=== PATIENT | male | born 1975 | race Two or more races ===

== ENCOUNTER 2024-08-24 10:14 | Inpatient (IN) | payer MEDICAID, OTHER ==
[~2024-08-24] VITALS: Ht 175.3 cm; Wt 103.0 kg
--- NOTE | 2024-08-24 10:46 | ED.PDOC ---
HPI Comments 49 y.o male presents to the ED for a chief complaint of left sided chest pain that started 2 weeks ago s/p hospital discharge. Patient describes pain as a sharp and pressure sensation, is non radiating, intermittent, presents at rest and alleviates when taking a walk. Additonally, patient has had elevated blood pressure readings. Patient originally was at his PCP office today to follow up s/p hospital discharge from [place] 2 weeks ago for a right sided leg cellulitis with debridement procedure. Patient told PCP about his chest pain and was sent into the ED for high level of care. Patient at this time has no complaints regarding his wound, states he has a wound care nurse who comes to his house a couple times a week, with last visit being 3 days ago. Patient denies any fever, chills, nausea, vomiting, abdominal pain, Patient was placed on Augmentin and has already finished the course. Patient also was prescribed HTN medication during his hospital admission but states he has not yet picked up the medication from the pharmacy. Patient gets wound care twice a week. Patient has not picked up his blood pressure medications yet. Vitals: BP: 168/106 HR: 88 Temp: 97.8 F SPO2: 95% RA RR: 18 Past medical history: HTN, right leg cellulitis, Marijuana and tobacco use. Past surgical history: Right leg incision and debridement Allergies: None HPI: Poor Historian. REVIEW OF SYSTEMS: CONSTITUTIONAL: Denies acute: fever, diaphoresis, chills, generalized weakness. HEAD: Denies acute: headache, photophobia Eyes: Denies acute: Double vision, vision loss, eye pain, eye discharge. EARS: Denies acute: tinnitus, hearing loss, ear discharge, ear pain, THROAT: Denies acute: sore throat, swelling, difficulty swallowing , pain with swallowing, change in voice. NECK: Denies acute: neck pain, neck swelling, stiff neck. HEART: Denies acute : palpitations, LUNGS: Denies acute: SOB, wheezing, cough, hemoptysis ABDOMEN: Denies acute: abdominal pain, Nausea, Vomiting, diarrhea, melena , hematemesis, hematochezia SKIN: Denies acute: rash, redness, lesions, itchiness. EXTREMITIES: Denies acute: calf pain, numbness, tingling, weakness, denies pain in extremity. Denies acute: Low back pain. Neuro: Denies acute: focal neurological deficit, motor or sensory focal neurological deficit, tremors, seizure like activity, confusion, dizziness, change in mental status, loss of bowel or bladder function, cauda equina like symptoms. : Denies acute: dysuria, hematuria, flank pain, increase in urinary frequency. PSYCH: Denies acute: hallucination, suicidal ideation, homicidal ideation. PHYSICAL EXAM: General: ---mild-----acute distress, awake and alert. Head: normocephalic, atraumatic. Neck: supple, trachea is midline, no swelling. Throat: Normal phonation. Eyes:, no erythema, no purulent discharge, no proptosis, no icterus. Heart: regular rate, regular rhythm, no significant murmur appreciated. Lungs: no apparent respiratory distress, Able to speak in full sentences. No wheezing, no rhonchi, no crackles. No stridors Clear to auscultation bilaterally. Abdomen: non tender to palpation, non distended, soft, no guarding, no rebound, + bowel sounds. Neuro: Awake, Alert, oriented to name, self, situation, follows commands GCS=15. Speech is normal. Skin: no petechia, no purpura, no cyanosis, non-pale, not jaundice. Lower extremities: --trace bilateral - Pitting edema no deformity, no focal swelling, no calf TTP. Well healing wound in the right anterior meyer. Makes eye contact. moves all four extremities. Face: no apparent facial droop. ED COURSE: Chief Complaint: Chest Pain Time Seen by MD: 10:25 Reviewed Notes: Nurses Notes, Allergies Allergies: Coded Allergies: NO KNOWN ALLERGIES (Unverified , 08/24/24) Information Source: Patient Mode of Arrival: Wheelchair Past Medical History PAST MEDICAL HISTORY: HTN Past Medical History (Other): cellulitis to the right lower leg Surgical History (Other): debriement Family History Family History: Reviewed,noncontributory to illness Social History Smoker: Cigarettes Alcohol: Denies ETOH Use Drugs: Marijuana Lives In: Home Was a procedure done? Was a procedure done?: No CP Differential Dx Differential Diagnosis: N/A Differential Diagnosis: Angina, Chest Wall Pain, Costochondritis, Esophageal reflux/spasm, Gastritis, Pericarditis, Other (Ddx include but not limitied to gastritis, musculoskeletal pain, radiculopathy, atypical chest pain, dissection, aneurysm, ACS, unstable angina, hiatal hernia, GERD, anxiety, costochondritis, PE, pneumothroax, neoplasm, cardiac ischemia, drug abuse, anemia.) X-Ray, Labs, Meds, VS Vital Signs Date Time Temp Pulse Resp B/P (MAP) Pulse Ox O2 Delivery O2 Flow Rate FiO2 08/24/24 13:40 85 08/24/24 13:37 78 10 141/92 (108) 97 08/24/24 13:37 74 10 97 Room Air* 0 21 08/24/24 13:00 87 12 154/101 (118) 99 08/24/24 11:59 154/101 08/24/24 10:59 154/100 08/24/24 10:59 97.5 89 18 151/100 (117) 95 97.5 08/24/24 10:59 89 18 95 Room Air 08/24/24 10:21 97.8 88 18 168/106 (126) 95 97.8 08/24/24 10:21 89 Lab Test 08/24/24 13:25 08/24/24 11:04 08/24/24 10:18 Range/Units Troponin I High Sensitivity Pending 8 8 </=54 ng/L White Blood Count 11.3 H 4.4-10.8 10^3/uL Red Blood Count 4.71 4.5-5.90 10^6/uL Hemoglobin 14.4 13.5-17.5 g/dL Hematocrit 43.1 41.0-53.0 % Mean Corpuscular Volume 91.5 80.0-100.0 fL Mean Corpuscular Hemoglobin 30.5 28.0-32.0 pg Mean Corpuscular Hemoglobin Concent 33.3 32.0-36.0 g/dL Red Cell Distribution Width 14.7 H 11.8-14.3 % Platelet Count 221 140-450 10^3/uL Mean Platelet Volume 8.3 6.9-10.8 fL Neutrophils (%) (Auto) 68.7 37.0-80.0 % Lymphocytes (%) (Auto) 18.5 10.0-50.0 % Monocytes (%) (Auto) 6.6 0.0-12.0 % Eosinophils (%) (Auto) 5.8 0.0-7.0 % Basophils (%) (Auto) 0.4 0.0-2.0 % Neutrophils # (Auto) 7.7 1.6-8.6 10 ^3/uL Lymphocytes # (Auto) 2.1 0.4-5.4 10 ^3/uL Monocytes # (Auto) 0.7 0-1.3 10 ^3/uL Eosinophils # (Auto) 0.7 0-0.8 10 ^3/uL Basophils # (Auto) 0 0-0.2 10 ^3/uL Nucleated Red Blood Cells 0.0 % D-Dimer, Quantitative 0.36 0.0-0.49 mg/L FEU Sodium Level 137 136-145 mmol/L Potassium Level 3.7 3.5-5.1 mmol/L Chloride Level 107 98-107 mmol/L Carbon Dioxide Level 25 20-31 mmol/L Anion Gap 5 5-15 Blood Urea Nitrogen 13 9-23 mg/dL Creatinine 1.02 0.700-1.30 mg/dL Glomerular Filtration Rate Calc 89 >90 mL/min BUN/Creatinine Ratio 12.7 10.0-20.0 Serum Glucose 109 H 74-106 mg/dL Calcium Level 9.5 8.7-10.4 mg/dL Total Bilirubin 0.4 0.2-1.0 mg/dL Aspartate Amino Transferase (AST) 14 13-40 U/L Alanine Aminotransferase (ALT) 17 7-40 U/L Alkaline Phosphatase 77 46-116 U/L Total Protein 7.5 5.7-8.2 g/dL Albumin 4.4 3.2-4.8 g/dL Current Medications Medications (Trade) Dose Ordered Sig/Vasu Route Start Time Stop Time Status Last Admin Aspirin (Ecotrin Enteric Coated Tablet) 325 mg ONCE ONCE PO 08/24/24 10:45 08/24/24 10:46 DC 08/24/24 10:58 Nitroglycerin (Ntrostat Sublingual) 0.4 mg ONCE ONCE SL 08/24/24 10:45 08/24/24 10:46 DC 08/24/24 10:[address] [address] Ph: [phone] DIAGNOSTIC IMAGING Diagnostic Imaging Report : [id number] Signed PATIENT: PETERSON MOON MACCT: [id number] UNIT: [id number] : 1975 LOC: ER ROOM / BED: / AGE / SEX: 49 / M ADM STATUS: REG ER SERVICE 1242 ORDERING PHYSICIAN: WADE HENSLEY DO PROCEDURE(s): CXRP - CHEST PORTABLE REASON: cp ORDER NUMBER(s): [id number], ACCESSION NUMBER(s): [id number] EXAM: XY CHEST PORTABLE HISTORY: cp COMPARISON: None TECHNIQUE: Portable upright AP view of the chest was performed. FINDINGS: No pneumothorax, consolidative infiltrates, or pulmonary edema. The heart is not enlarged. IMPRESSION: No acute intrathoracic process. ATED BY: DANIEL SINGH MD DICTATED DATE/TIME: 08/24/241326 SIGNED BY: DANIEL SINGH MD SIGNED DATE/TIME: 08/24/241326 CC: Time of 1ST Reevaluation: 10:56 Reevaluation 1ST: Unchanged Patient Education/Counseling: Diagnosis, Treatment Family Education/Counseling: No Family Present Comments Patient presented with the above HPI.---cardiac--workup was initiated. patient was found with the above mentioned diagnosis. the following medications were ordered: please refer to order lists of meds and tests obtained by myself Dr. Hensley. Patient ED course and VS have been stabilized. Patient has been reassessed in the ED and remained in a stable condition. Pertinent incidental findings were discussed with the patient and/or family. Patient/family voices understanding and is agreeable with plan. Patient has been observed in the ED adequate length of time to insure improvement/stability. Escalation of care considered: Consideration of escalation to observation or admission Patient was ADMITTED to the medicine team for further evaluation and treatment of their presentation. All the reports of any imaging studies that were ordered by myself were reviewed by myself. Departure 1 Departure Time of Disposition: 12:44 Impression: Primary Impression: Chest pain Disposition: ADMITTED INPATIENT Admit to: Tele Condition: Guarded Discharged With: Self Critical Care Note Critical Care Time?: No Heart Score Heart Score: Heart Score Response (Comments) Value History Slightly Suspicious 0 EKG Normal 0 Age 45-64 1 Risk Factors >3 or Hx ASHD 2 Troponin Normal limit 0 Total 3 I personally scribed for WADE HENSLEY DO ([email or web address]) on 08/24/24 at 10:46. Electronically submitted by Anabel Arenas ([facility]). I personally scribed for WADE HENSLEY DO ([email or web address]) on 08/24/24 at 11:02. Electronically submitted by Anabel Arenas ([facility]). I personally scribed for WADE HENSLEY DO ([email or web address]) on 08/24/24 at 12:28. Electronically submitted by Anabel Arenas ([facility]). WADE HENSLEY DO Aug 24, 2024 10:46
--- NOTE | 2024-08-24 10:53 | ECG ---
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
[2024-08-24] MEDS: ASPirin-EC 325mg tab PO ONE (10:58)
[2024-08-24] MEDS: NITROGLYCERIN 0.4 MG SL TAB SL ONE (10:59)
[2024-08-24 11:32] LABS: Basophils # (auto) 0 10 ^3/uL (0-0.2); Basophils % (auto) 0.4 % (0.0-2.0); Eosinophils # (auto) 0.7 10 ^3/uL (0-0.8); Eosinophils % (auto) 5.8 % (0.0-7.0); Hematocrit 43.1 % (41.0-53.0); Hemoglobin 14.4 g/dL (13.5-17.5); Lymphocytes # (auto) 2.1 10 ^3/uL (0.4-5.4); Lymphocytes % (auto) 18.5 % (10.0-50.0); Mean Corpuscular Hemoglobin 30.5 pg (28.0-32.0); Mean Corpuscular Hgb Conc. 33.3 g/dL (32.0-36.0); Mean Corpuscular Volume 91.5 fL (80.0-100.0); Monocytes # (auto) 0.7 10 ^3/uL (0-1.3); Monocytes % (auto) 6.6 % (0.0-12.0); Neutrophils # (auto) 7.7 10 ^3/uL (1.6-8.6); Neutrophils % (auto) 68.7 % (37.0-80.0); Platelet Count (auto) 221 10^3/uL (140-450); Red Blood Cells 4.71 10^6/uL (4.5-5.90); Red Cell Distribution Width 14.7 % (11.8-14.3); White Blood Cell 11.3 10^3/uL (4.4-10.8)
[2024-08-24 11:50] LABS: Alanine Aminotransferase 17 U/L (7-40); Albumin 4.4 g/dL (3.2-4.8); Alkaline Phosphatase 77 U/L (46-116); Anion Gap 5 (5-15); Aspartate Aminotransferase 14 U/L (13-40); BUN/Creatinine Ratio 12.7 (10.0-20.0); Bilirubin, Total 0.4 mg/dL (0.2-1.0); Blood Urea Nitrogen 13 mg/dL (9-23); Calcium 9.5 mg/dL (8.7-10.4); Carbon Dioxide 25 mmol/L (20-31); Chloride 107 mmol/L (98-107); Potassium 3.7 mmol/L (3.5-5.1); Sodium 137 mmol/L (136-145); Total Protein 7.5 g/dL (5.7-8.2)
[2024-08-24 11:55] LABS: Glucose 109 mg/dL (74-106)
--- NOTE | 2024-08-24 13:30 | DVH ---
EXAM: XY CHEST PORTABLE HISTORY: cp COMPARISON: None TECHNIQUE: Portable upright AP view of the chest was performed. FINDINGS: No pneumothorax, consolidative infiltrates, or pulmonary edema. The heart is not enlarged. IMPRESSION: No acute intrathoracic process.
[2024-08-24 13:37] VITALS: PULSE 74; RESP 10; O2SAT 97
[2024-08-24] MEDS ORDERED: MORPHINE SULFATE INJ 2 MG/ml SYRG IV PRN (19:00)
[2024-08-24] MEDS ORDERED: ONDANSETRON HCL 4 MG/2 ML VIAL IV PRN (19:00)
[2024-08-24] MEDS ORDERED: NITROGLYCERIN 0.4 MG SL TAB SL PRN (19:00)
[2024-08-24] MEDS ORDERED: TEMAZEPAM 15 MG CAP PO PRN (19:00)
[2024-08-24 19:30] VITALS: PULSE 76; RESP 16; O2SAT 97
[2024-08-24 20:53] VITALS: BP 158/105; PULSE 100; RESP 18; RESP 20; TEMP 98.2; O2SAT 97
[2024-08-24 21:04] LABS: Urine Bacteria FEW /hpf (None Seen); Urine Blood TRACE /uL (Negative); Urine Clarity Turbid (Clear); Urine Color Yellow (Yellow); Urine Mucus FEW (None Seen); Urine Protein, UAD TRACE (Negative); Urine Specific Gravity 1.022 (1.001-1.035); Urine Squamous Epithelial Cell FEW /hpf (<5); Urine Urobilinogen Normal (Negative); Urine WBC 112 /HPF (0-3)
--- NOTE | 2024-08-24 21:39 | DVHHP2 ---
History of Present Illness Reason for Visit: Chest pain History of Present Illness 49-year-old male presents for evaluation of chest pain. Patient reports intermittent episodes of substernal pressure-like chest pain. She states today the symptoms became worse. He states having substernal chest pressure worsening when laying down. He states the symptoms alleviate somewhat when he ambulates. Reports mild shortness for breath. No nausea or vomiting. He also reports having foul-smelling urine for the past one-week. Past Medical History Hypertension, leg cellulitis Past Surgical History Debridement of right lower extremity Family History Noncontributory Smoke: No ALCOHOL: none Lives: with Family Review of Systems Review of Systems Review of systems are currently negative otherwise addressed in HPI . Allergies: Coded Allergies: NO KNOWN ALLERGIES (Unverified , 08/24/24) Medications Current Medications Medications Dose Ordered Sig/Vasu Route Start Time Stop Time Status Last Admin Dose Admin Aspirin 81 mg DAILY PO 08/25/24 10:00 Temazepam 15 mg QHSP PRN PO 08/24/24 19:00 Ondansetron HCl 4 mg Q4HP PRN IV 08/24/24 19:00 Acetaminophen 650 mg Q6HP PRN PO 08/24/24 19:00 Nitroglycerin 0.4 mg Q5MINP PRN SL 08/24/24 19:00 Morphine Sulfate 2 mg Q30M PRN IV 08/24/24 19:00 Lisinopril 10 mg DAILY PO 08/25/24 10:00 UNV Exam Vital Signs Vital Signs Date Time Temp Pulse Resp B/P (MAP) Pulse Ox O2 Delivery O2 Flow Rate FiO2 08/24/24 20:53 98.2 100 18 158/105 (122) 97 98.2 08/24/24 19:30 Room Air* 0 21 Exam Gen: 49-year-old male in mild distress Skin: Warm, dry, normal color and texture, no rash. HEENT: Normocephalic atraumatic, mucous membranes moist and pink. Neck: Cervical and supraclavicular nodes normal without enlargement, trachea is midline, thyroid gland is normal without masses. Pulmonary: Clear to auscultation and percussion bilaterally. Cardiac: Regular rate and rhythm. No murmur Abdomen: Soft, nontender, nondistended, bowel sounds present all 4 quadrants, no guarding, no rigidity, no organomegaly. Extremities: No cyanosis, clubbing, no edema Neuro: Cranial nerves II through XII grossly intact, normal affect and speech, no focal motor deficits. Labs/Xrays ORDERING PHYSICIAN: WADE HENSLEY DO PROCEDURE(s): CXRP - CHEST PORTABLE REASON: cp ORDER NUMBER(s): [id number], ACCESSION NUMBER(s): [id number] EXAM: XY CHEST PORTABLE HISTORY: cp COMPARISON: None TECHNIQUE: Portable upright AP view of the chest was performed. FINDINGS: No pneumothorax, consolidative infiltrates, or pulmonary edema. The heart is not enlarged. IMPRESSION: No acute intrathoracic process. Labs Test 08/24/24 20:46 08/24/24 13:25 08/24/24 10:18 Range/Units Urine Color Yellow Yellow Urine Clarity Turbid H Clear Urine pH 6.0 5.0-9.0 Urine Specific [place] 1.022 1.001-1.035 Urine Protein Trace H Negative Urine Ketones Negative Negative Urine Blood Trace H Negative /uL Urine Nitrite 1+ H Negative Urine Bilirubin Negative Negative Urine Urobilinogen Normal Negative mg/dL Urine Leukocyte Esterase 3+ Negative /uL Urine RBC 4 0 - 3 /hpf Urine Microscopic WBC 112 H 0-3 /HPF Urine Squamous Epithelial Cells Few <5 /hpf Urine Bacteria Few H None Seen /hpf Urine Mucus Few None Seen Urine Glucose Normal Normal mg/dL Troponin I High Sensitivity 7 </=54 ng/L White Blood Count 11.3 H 4.4-10.8 10^3/uL Red Blood Count 4.71 4.5-5.90 10^6/uL Hemoglobin 14.4 13.5-17.5 g/dL Hematocrit 43.1 41.0-53.0 % Mean Corpuscular Volume 91.5 80.0-100.0 fL Mean Corpuscular Hemoglobin 30.5 28.0-32.0 pg Mean Corpuscular Hemoglobin Concent 33.3 32.0-36.0 g/dL Red Cell Distribution Width 14.7 H 11.8-14.3 % Platelet Count 221 140-450 10^3/uL Mean Platelet Volume 8.3 6.9-10.8 fL Neutrophils (%) (Auto) 68.7 37.0-80.0 % Lymphocytes (%) (Auto) 18.5 10.0-50.0 % Monocytes (%) (Auto) 6.6 0.0-12.0 % Eosinophils (%) (Auto) 5.8 0.0-7.0 % Basophils (%) (Auto) 0.4 0.0-2.0 % Neutrophils # (Auto) 7.7 1.6-8.6 10 ^3/uL Lymphocytes # (Auto) 2.1 0.4-5.4 10 ^3/uL Monocytes # (Auto) 0.7 0-1.3 10 ^3/uL Eosinophils # (Auto) 0.7 0-0.8 10 ^3/uL Basophils # (Auto) 0 0-0.2 10 ^3/uL Nucleated Red Blood Cells 0.0 % D-Dimer, Quantitative 0.36 0.0-0.49 mg/L FEU Sodium Level 137 136-145 mmol/L Potassium Level 3.7 3.5-5.1 mmol/L Chloride Level 107 98-107 mmol/L Carbon Dioxide Level 25 20-31 mmol/L Anion Gap 5 5-15 Blood Urea Nitrogen 13 9-23 mg/dL Creatinine 1.02 0.700-1.30 mg/dL Glomerular Filtration Rate Calc 89 >90 mL/min BUN/Creatinine Ratio 12.7 10.0-20.0 Serum Glucose 109 H 74-106 mg/dL Calcium Level 9.5 8.7-10.4 mg/dL Total Bilirubin 0.4 0.2-1.0 mg/dL Aspartate Amino Transferase (AST) 14 13-40 U/L Alanine Aminotransferase (ALT) 17 7-40 U/L Alkaline Phosphatase 77 46-116 U/L Total Protein 7.5 5.7-8.2 g/dL Albumin 4.4 3.2-4.8 g/dL Assessment/Plan Assessment/Plan Assessment Chest pain rule out ACS Hypertension UTI Plan Admit the patient to telemetry to the hospitalist Cardiology consultation Resume home medications Rocephin Urine bacterial culture pending Continue treatment per orders. Plan discussed with: Patient My Orders Orders - GWEN CORREA AGACNP Procedure Category Date Status Time Aspirin Tablet PHA 08/25/24 In Process 10:00 * Cardiology Consult CONS 08/24/24 Transmitted 18:46 Basic Metabolic Panel LAB 08/25/24 Verified 04:00 Admit ADMIT 08/24/24 Transmitted 18:46 Temazepam (Restoril) PHA 08/24/24 In Process 19:00 Ondansetron Hcl PHA 08/24/24 In Process (Zofran) 19:00 Echo 2d Mode Cardiac US 08/24/24 Logged DOP 18:46 Condition: Fair [place] 08/24/24 In Process 18:46 Acetaminophen Tablet PHA 08/24/24 In Process (Tylenol Tablet) 19:00 Bedrest With Bathroom [place] 08/24/24 In Process Privileg 18:46 Nitroglycerin PHA 08/24/24 In Process Sublingual (Ntrostat 19:00 Morphine Sulfate PHA 08/24/24 In Process Injection 19:00 Stat Ekg For Chest [facility] 08/24/24 In Process Pain 18:46 Notify Of Changes [facility] 08/24/24 In Process From Base 18:46 Cardiology Specialist For [facility] 08/24/24 In Process 24 Hours 18:46 Emergency Dysrhythmia [facility] 08/24/24 In Process Protocol 18:46 Rhythm Strips Once [facility] 08/24/24 In Process Every Shift 18:46 Oxygen By Nasal RT 08/24/24 Transmitted Cannula 18:46 Lisinopril Tablet PHA 08/25/24 Logged (Zestril Tablet) 10:00 Lisinopril Tablet PHA 08/24/24 Transmitted (Zestril Tablet) 21:30 Date of Service: Aug 24, 2024 Billing Provider: GWEN CORREA Common Visit Codes: [id number] INP/OBS CARE (HIGH) GWEN CORREA Aug 24, 2024 21:39
[2024-08-24] MEDS ORDERED: ACET1CAP14 PO (22:09)
[2024-08-24] MEDS ORDERED: IBUP200C3 PO (22:09)
[2024-08-24] MEDS: LISINOPRIL 5 MG TAB PO ONE (22:12)
[2024-08-24] MEDS: cefTRIAXone 1GM/50ML D5W 50 ML IV ONE (22:14)
[2024-08-24 23:13] VITALS: BP 145/93; PULSE 82; TEMP 98.8; O2SAT 98
[2024-08-25] VITALS (9 sets, daily range): BP systolic 133–154; BP diastolic 85–99; PULSE 67–90; RESP 16–20; TEMP 97.8–98.1; O2SAT 96–98
[2024-08-25 06:20] LABS: Chloride 104 mmol/L (98-107); Potassium 3.7 mmol/L (3.5-5.1); Sodium 137 mmol/L (136-145)
[2024-08-25 06:21] LABS: Anion Gap 7 (5-15); Calcium 9.4 mg/dL (8.7-10.4); Carbon Dioxide 26 mmol/L (20-31)
[2024-08-25 06:26] LABS: BUN/Creatinine Ratio 14.2 (10.0-20.0); Blood Urea Nitrogen 15 mg/dL (9-23); Glucose 98 mg/dL (74-106)
[2024-08-25] MEDS: cefTRIAXone 1GM/50ML D5W 50 ML IV SCH (08:33)
[2024-08-25] MEDS: ASPirin 81 mg TAB PO SCH (10:00)
[2024-08-25] MEDS: LISINOPRIL 5 MG TAB PO SCH (10:06)
--- NOTE | 2024-08-25 11:08 | DVHINCON2 ---
Date Seen: Aug 25, 2024 Referring Physician PAIGE Jonas Reason for Consultation Chest pain History of Present Illness This is a 49-year-old man who presented to the emergency room with a chief complaint of chest pain for two weeks. Describes his chest pain as left-sided, sharp/pressure-like, radiating to his left upper extremity, intermittent, non provoked, associated with a headache, and alleviated with ambulation. At time of assessment, the patient denied any further chest pain. Presented with systolic blood pressure in the 160s mmHg. He underwent a 12 lead electrocardiogram revealing a normal sinus rhythm. Serial troponin levels are negative. Of note, reports recent admission to [facility] for the treatment of a right lower extremity abscess/cellulitis two weeks ago. Medical history inclu julieta hypertension, tobacco use x 15 pack-years, cannabinoid use, and obesity. Past Medical History Past medical history reviewed. No other significant than mentioned above. Past Surgical History Right lower extremity debridement two weeks ago Family History: Alcoholism G8 MOTHER Cerebrovascular accident (CVA) G8 MOTHER Diabetes mellitus G8 MOTHER FH: dementia G8 MOTHER Family History Family history reviewed. Mother with CVAs x2. Social History Admits to cannabinoid and tobacco use, see HPI. Denies any use of alcohol. Allergies: Coded Allergies: NO KNOWN ALLERGIES (Unverified , 08/24/24) Home Meds Reported Medications Ibuprofen (Ibuprofen) 200 Mg Cap, 200 MG PO, MG 08/24/24 Acetaminophen (Tylenol) 325 Mg Cap, 325 MG PO, CAP 08/24/24 Home Meds Home medications reviewed. Current Medications Current Medications Medications (Trade) Dose Ordered Sig/Vasu Route PRN Reason Start Time Stop Time Status Last Admin Aspirin 81 mg DAILY PO 08/25/24 10:00 Temazepam (Restoril) 15 mg QHSP PRN PO FOR INSOMNIA 08/24/24 19:00 Ondansetron HCl (Zofran) 4 mg Q4HP PRN IV NAUSEA / VOMITING 08/24/24 19:00 Acetaminophen (Tylenol Tablet) 650 mg Q6HP PRN PO PAIN SCALE 1-3 OR TEMP>100.4 08/24/24 19:00 Nitroglycerin (Ntrostat Sublingual) 0.4 mg Q5MINP PRN SL FOR CHEST PAIN 08/24/24 19:00 Morphine Sulfate 2 mg Q30M PRN IV FOR CHEST PAIN 08/24/24 19:00 Lisinopril (Zestril Tablet) 10 mg DAILY PO 08/25/24 10:00 08/25/24 10:06 Ceftriaxone Sodium 50 ml @ 100 mls/hr DAILY@09 IV 08/25/24 09:00 08/25/24 08:33 Review of Systems Constitutional: No symptom reported Ears, Nose, & Throat: No symptom reported Eyes: No symptom reported Neurological: Headache Pulmonary/Respiratory: No symptom reported Cardiovascular: Chest pain Gastrointestinal: No symptom reported Genitourinary: No symptom reported Musculoskeletal: No symptom reported Skin: No symptom reported Psychiatric: No symptom reported Endocrine: No symptom reported Hemotologic/Lymphatic: No symptom reported Vital Signs Vital Signs Date Time Temp Pulse Resp B/P (MAP) Pulse Ox O2 Delivery O2 Flow Rate FiO2 08/25/24 10:06 132/78 08/25/24 09:00 98.0 67 19 98 98.0 08/25/24 01:23 Room Air* 0 21 Physical Exam General Appearance: Cooperative. Well developed. Obese. In no acute distress Head Exam: Normal inspection Neck Exam: Normal inspection. Non-tender. Normal alignment Pulmonary/Respiratory: Chest non-tender. Clear bilateral breath sounds Cardiovascular/Chest: Regular rate and rhythm. S1, S2. NSR. No murmurs. No JVD. Peripheral Pulses: 2+ Radial (R). 2+ Radial (L). 2+ Pedal (R). 2+ Pedal (L) Abdominal Exam: Normal bowel sounds. Soft. Ankle Exam: Negative ankle edema Lower extremities: Negative lower extremity edema Neuro/Mental Status: A&O x4. Coherent Thoughts/Psych: Normal thought pattern. Appropriate mood and affect. Good judgement and insight Appearance: In no acute distress Skin Exam: Normal inspection. Normal color. Warm. Dry Labs/Diagnostic Data Labs Test 08/25/24 05:08 08/24/24 20:46 08/24/24 13:25 08/24/24 10:18 Range/Units Sodium Level 137 136-145 mmol/L Potassium Level 3.7 3.5-5.1 mmol/L Chloride Level 104 98-107 mmol/L Carbon Dioxide Level 26 20-31 mmol/L Anion Gap 7 5-15 Blood Urea Nitrogen 15 9-23 mg/dL Creatinine 1.06 0.700-1.30 mg/dL Glomerular Filtration Rate Calc 85 >90 mL/min BUN/Creatinine Ratio 14.2 10.0-20.0 Serum Glucose 98 74-106 mg/dL Calcium Level 9.4 8.7-10.4 mg/dL Urine Color Yellow Yellow Urine Clarity Turbid H Clear Urine pH 6.0 5.0-9.0 Urine Specific [place] 1.022 1.001-1.035 Urine Protein Trace H Negative Urine Ketones Negative Negative Urine Blood Trace H Negative /uL Urine Nitrite 1+ H Negative Urine Bilirubin Negative Negative Urine Urobilinogen Normal Negative mg/dL Urine Leukocyte Esterase 3+ Negative /uL Urine RBC 4 0 - 3 /hpf Urine Microscopic WBC 112 H 0-3 /HPF Urine Squamous Epithelial Cells Few <5 /hpf Urine Bacteria Few H None Seen /hpf Urine Mucus Few None Seen Urine Glucose Normal Normal mg/dL Troponin I High Sensitivity 7 </=54 ng/L White Blood Count 11.3 H 4.4-10.8 10^3/uL Red Blood Count 4.71 4.5-5.90 10^6/uL Hemoglobin 14.4 13.5-17.5 g/dL Hematocrit 43.1 41.0-53.0 % Mean Corpuscular Volume 91.5 80.0-100.0 fL Mean Corpuscular Hemoglobin 30.5 28.0-32.0 pg Mean Corpuscular Hemoglobin Concent 33.3 32.0-36.0 g/dL Red Cell Distribution Width 14.7 H 11.8-14.3 % Platelet Count 221 140-450 10^3/uL Mean Platelet Volume 8.3 6.9-10.8 fL Neutrophils (%) (Auto) 68.7 37.0-80.0 % Lymphocytes (%) (Auto) 18.5 10.0-50.0 % Monocytes (%) (Auto) 6.6 0.0-12.0 % Eosinophils (%) (Auto) 5.8 0.0-7.0 % Basophils (%) (Auto) 0.4 0.0-2.0 % Neutrophils # (Auto) 7.7 1.6-8.6 10 ^3/uL Lymphocytes # (Auto) 2.1 0.4-5.4 10 ^3/uL Monocytes # (Auto) 0.7 0-1.3 10 ^3/uL Eosinophils # (Auto) 0.7 0-0.8 10 ^3/uL Basophils # (Auto) 0 0-0.2 10 ^3/uL Nucleated Red Blood Cells 0.0 % D-Dimer, Quantitative 0.36 0.0-0.49 mg/L FEU Total Bilirubin 0.4 0.2-1.0 mg/dL Aspartate Amino Transferase (AST) 14 13-40 U/L Alanine Aminotransferase (ALT) 17 7-40 U/L Alkaline Phosphatase 77 46-116 U/L Total Protein 7.5 5.7-8.2 g/dL Albumin 4.4 3.2-4.8 g/dL Microbiology Date/Time Source Procedure Growth Status 08/24/24 18:12 Leg Right Gram Stain - Final Resulted 08/24/24 18:12 Leg Right Wound Culture - Preliminary Resulted Assessment Chest pain in the setting of hypertensive urgency Rule out structural heart disease Tobacco/cannabinoid use Obesity Plan/Recommendation (Dr. Mensah) We will continue further cardiac evaluation with a transthoracic echocardiogram to rule out structural heart disease. The patient presents with a low-risk heart score for major cardiac events. Continue aggressive blood pressure control for a target SBP <140 mmHg. In the setting of an unremarkable echocardiogram, there is no further cardiac workup indicated at this time. Consider an outpatient stress test if deemed necessary. Thank you for allowing us to participate in this patient's care. Please call if you have any questions or concerns. This medical document was created using an electronic medical record system with voice recognition software and computerized dictation system. Although this document has been carefully reviewed, there might still be some phonetic and typographical errors. Occasional wrong-word or ``sound-alike substitutions may have occurred due to the inherent limitations of voice recognition software. These areas are purely typographical due to imperfections of the software programs and do not reflect any compromise in the patient's medical care. Please read the chart carefully and recognize, using context, where these substitutions have occurred. Plan discussed with: Patient, Other NYHA Physical activity limitations: NA Date of Service: Aug 25, 2024 Billing Provider: KAMAR VIRAMONTES Cardiology Common Codes: [id number] INP/OBS CARE (High) KAMAR VIRAMONTES [facility] Aug 25, 2024 11:07
[2024-08-25] MEDS ORDERED: VANCOMYCIN PER PHARMACY 0 MG IV SCH (15:00)
--- NOTE | 2024-08-25 15:07 | DVHPN2 ---
Subjective Patient denies any chest pain at this time. Reviewed: Care Plan, H&P, Labs, Medications Changes from previous H/P or p: No Changes General: Per HPI Objective Vitals Vital Signs Date Time Temp Pulse Resp B/P (MAP) Pulse Ox O2 Delivery O2 Flow Rate FiO2 08/25/24 13:00 98.0 68 17 142/88 (106) 96 98.0 08/25/24 08:00 Room Air* 0 21 Intake/Output Intake and Output 08/25/24 07:00 Intake Total 250 ml Balance 250 ml Intake Oral 250 ml # Voids 1 General Appearance: Alert, Oriented X3, Cooperative, No acute distress HEENT: Atraumatic, PERRLA Lungs: Clear to auscultation, Normal air movement Cardiovascular: Normal S1, Normal S2 Abdomen: Normal bowel sounds, Soft, No tenderness, No hepatospenomegaly, No masses Neuro: Normal gait, Normal speech Skin: Dry, Intact Psych/Mental Status: Mental status NL, Mood NL Medications Current Medications Medications Dose Ordered Sig/Vasu Route Start Time Stop Time Status Last Admin Dose Admin Aspirin 81 mg DAILY PO 08/25/24 10:00 Temazepam 15 mg QHSP PRN PO 08/24/24 19:00 Ondansetron HCl 4 mg Q4HP PRN IV 08/24/24 19:00 Acetaminophen 650 mg Q6HP PRN PO 08/24/24 19:00 Nitroglycerin 0.4 mg Q5MINP PRN SL 08/24/24 19:00 Morphine Sulfate 2 mg Q30M PRN IV 08/24/24 19:00 Lisinopril 10 mg DAILY PO 08/25/24 10:00 08/25/24 10:06 10 MG Ceftriaxone Sodium 50 ml @ 100 mls/hr DAILY@09 IV 08/25/24 09:00 08/25/24 08:33 100 MLS/HR Laboratory Results Laboratory Tests 08/24/24 10:18 08/25/24 05:08 Chemistry Test 08/25/24 05:08 Calcium Level 9.4 mg/dL (8.7-10.4) Urinalysis Test 08/24/24 20:46 Urine Color Yellow (Yellow) Urine Clarity Turbid (Clear) H Urine pH 6.0 (5.0-9.0) Urine Specific [place] 1.022 (1.001-1.035) Urine Protein Trace (Negative) H Urine Ketones Negative (Negative) Urine Blood Trace /uL (Negative) H Urine Nitrite 1+ (Negative) H Urine Bilirubin Negative (Negative) Urine Urobilinogen Normal mg/dL (Negative) Urine Leukocyte Esterase 3+ /uL (Negative) Urine RBC 4 /hpf (0 - 3) Urine Microscopic WBC 112 /HPF (0-3) H Urine Squamous Epithelial Cells Few /hpf (<5) Urine Bacteria Few /hpf (None Seen) H Urine Mucus Few (None Seen) Urine Glucose Normal mg/dL (Normal) Microbiology Microbiology Date/Time Source Procedure Growth Status 08/24/24 18:12 Leg Right Gram Stain - Final Resulted 08/24/24 18:12 Leg Right Wound Culture - Preliminary Resulted Labs and/or images reviewed: Labs reviewed by me, Image(s) reviewed by me Assessment/Plan Assessment/Plan Impression: -chest pain , rule out ACS -accelerated hypertension -right lower extremity wound/abscess with Staph aureus -obesity Plan: -change antibiotic therapy to vancomycin given failure of oral antibiotic therapy to clear left lower extremity abscess -continue lisinopril, add amlodipine -cardiology consultation -echocardiogram, pending -reassess for discharge in a.m. Total time spent with patient discussing and formulating plan of care: 35 minutes. This medical document was created using an electronic medical record system with [employer] dictation system. Although this document has been carefully reviewed, there may still be some phonetic and typographical errors. These areas are purely typographical due to imperfections of the software programs, and do not reflect any compromise in the patient's medical care. Plan discussed with: Patient, Other (RN) My Orders Orders - SCOTT ALBERTO NP Procedure Category Date Status Time Wound Culture W/ Gs RADHA 08/25/24 In Process 13:44 Cleanse Wound With VIRGINIE 08/25/24 In Process Wound Clean 11:45 Vancomycin Per PHA 08/25/24 Transmitted Pharmacy 15:00 Date of Service: Aug 25, 2024 Billing Provider: SCOTT ALBERTO NP Common Visit Codes: [id number] INP/OBS CARE(HIGH) SCOTT ALBERTO NP Aug 25, 2024 15:07
[2024-08-25] MEDS: VANCOMYCIN 1GM/200ML PM 250 ML IV SCH (15:15)
[2024-08-25] MEDS: amLODIPine BESYLATE 5 MG TAB PO ONE (15:54)
[2024-08-26] VITALS (7 sets, daily range): BP systolic 140–156; BP diastolic 84–108; PULSE 67–87; RESP 17–19; TEMP 36.4; O2SAT 95–99
[2024-08-26] MEDS ORDERED: VANCOMYCIN 1GM/200ML PM 250 ML IV ONE
[2024-08-26] MEDS: VANCOMYCIN 1GM/200ML PM 250 ML IV SCH (00:02)
--- NOTE | 2024-08-26 07:58 | DVHSR ---
APPROVED REPORT EXAM: Two-dimensional and M-mode echocardiogram with Doppler and color Doppler. Blood Pressure: 133/89 mmHg INDICATION Chest Pain RISK FACTORS Height: 69, Weight: 227 DIMENSIONS LVDd4.4 (3.8-5.7cm)LA (2D)4.6 (1.9-4.0cm)Aortic Root3.6 (2.0-3.7cm) LVDs2.7 (2.5-4.0cm)LA (MM) (1.9-4.0cm)Aortic Cusp Exc1.9 (1.5-2.0cm) EF (%) 70.0 (55-70%)Rt. Atrium3.4 (1.9-4.0cm)Asc. Aorta cm IVSd1.3 (0.7-1.1cm)RV (D) (1.8-2.4cm) PWd1.3 (0.7-1.1cm) Mitral Valve MitralMitral Stenosis E wave0.91m/sMV Mean GR.mmHg A wave1.00m/sMV Peak GR.mmHg E/A ratio0.92D MVAcm2 DECEL [id number] 1/2 [id number] IVRTmsDop MVA3.78cm2 Aortic Valve Aortic ValveAortic Stenosis V11.08m/Patt Mean GR.7mmHg V21.74m/Patt Peak GR.12mmHg LVOT Diameter2.1 (1.8-2.4cm)Doppler AVA2.15cm2 Pulmonic Valve V21.02m/s Conclusion Sinus rhythm. Concentric LVH with left atrial enlargement sigmoid septum noted. Valves are normal. Left ventricular function is preserved at 65% with normal RV function. Mild tricuspid regurgitation. Trace mitral regurgitation. No pericardial effusion masses or vegetations discernible.
[2024-08-26] MEDS: amLODIPine BESYLATE 5 MG TAB PO SCH (08:38)
[2024-08-26] MEDS: ACETAMINOPHEN 325 MG TAB PO PRN (08:39)
[2024-08-26] MEDS: HYDROcodone-ACET 5/325MG TAB PO PRN (13:11)
[2024-08-26] MEDS ORDERED: AMLO1TAB23 PO (15:12)
[2024-08-26] MEDS ORDERED: LEVO500T91 PO (15:12)
--- NOTE | 2024-08-26 15:42 | MEDREC ---
[facility] ASP Intervention Section I [facility] Intervention: Deescalate AB based on CS (PLEASE CONSIDER DE-ESCALATION BASED ON CULTURE RESULTS ) JOY MOORE PHARMACIST Aug 26, 2024 15:42
--- NOTE | 2024-08-26 16:16 | DVHDS2 ---
Discharge Summary Date of Admission Aug 24, 2024 at 18:46 Date of Discharge: Aug 26, 2024 Admitting Diagnosis Chest pain rule out ACS Labs/Diagnostic Data: Laboratory Results Test 08/26/24 15:15 08/26/24 06:35 08/25/24 05:08 08/24/24 20:46 Vancomycin Level Trough 9.1 ug/mL (5-10) Creatinine 0.97 mg/dL (0.700-1.30) Glomerular Filtration Rate Calc 95 mL/min (>90) Sodium Level 137 mmol/L (136-145) Potassium Level 3.7 mmol/L (3.5-5.1) Chloride Level 104 mmol/L (98-107) Carbon Dioxide Level 26 mmol/L (20-31) Anion Gap 7 (5-15) Blood Urea Nitrogen 15 mg/dL (9-23) BUN/Creatinine Ratio 14.2 (10.0-20.0) Serum Glucose 98 mg/dL (74-106) Calcium Level 9.4 mg/dL (8.7-10.4) Urine Color Yellow (Yellow) Urine Clarity Turbid (Clear) Urine pH 6.0 (5.0-9.0) Urine Specific [place] 1.022 (1.001-1.035) Urine Protein Trace (Negative) Urine Ketones Negative (Negative) Urine Blood Trace /uL (Negative) Urine Nitrite 1+ (Negative) Urine Bilirubin Negative (Negative) Urine Urobilinogen Normal mg/dL (Negative) Urine Leukocyte Esterase 3+ /uL (Negative) Urine RBC 4 /hpf (0 - 3) Urine Microscopic WBC 112 /HPF (0-3) Urine Squamous Epithelial Cells Few /hpf (<5) Urine Bacteria Few /hpf (None Seen) Urine Mucus Few (None Seen) Urine Glucose Normal mg/dL (Normal) Test 08/24/24 13:25 08/24/24 10:18 Troponin I High Sensitivity 7 ng/L (</=54) White Blood Count 11.3 10^3/uL (4.4-10.8) Red Blood Count 4.71 10^6/uL (4.5-5.90) Hemoglobin 14.4 g/dL (13.5-17.5) Hematocrit 43.1 % (41.0-53.0) Mean Corpuscular Volume 91.5 fL (80.0-100.0) Mean Corpuscular Hemoglobin 30.5 pg (28.0-32.0) Mean Corpuscular Hemoglobin Concent 33.3 g/dL (32.0-36.0) Red Cell Distribution Width 14.7 % (11.8-14.3) Platelet Count 221 10^3/uL (140-450) Mean Platelet Volume 8.3 fL (6.9-10.8) Neutrophils (%) (Auto) 68.7 % (37.0-80.0) Lymphocytes (%) (Auto) 18.5 % (10.0-50.0) Monocytes (%) (Auto) 6.6 % (0.0-12.0) Eosinophils (%) (Auto) 5.8 % (0.0-7.0) Basophils (%) (Auto) 0.4 % (0.0-2.0) Neutrophils # (Auto) 7.7 10 ^3/uL (1.6-8.6) Lymphocytes # (Auto) 2.1 10 ^3/uL (0.4-5.4) Monocytes # (Auto) 0.7 10 ^3/uL (0-1.3) Eosinophils # (Auto) 0.7 10 ^3/uL (0-0.8) Basophils # (Auto) 0 10 ^3/uL (0-0.2) Nucleated Red Blood Cells 0.0 % D-Dimer, Quantitative 0.36 mg/L FEU (0.0-0.49) Total Bilirubin 0.4 mg/dL (0.2-1.0) Aspartate Amino Transferase (AST) 14 U/L (13-40) Alanine Aminotransferase (ALT) 17 U/L (7-40) Alkaline Phosphatase 77 U/L (46-116) Total Protein 7.5 g/dL (5.7-8.2) Albumin 4.4 g/dL (3.2-4.8) Other Laboratory Tests 08/26/24 06:35 08/25/24 05:08 08/24/24 10:18 Brief Hx & Hospital Course: History of Present Illness 49-year-old male presents for evaluation of chest pain. Patient reports intermittent episodes of substernal pressure-like chest pain. She states today the symptoms became worse. He states having substernal chest pressure worsening when laying down. He states the symptoms alleviate somewhat when he ambulates. Reports mild shortness for breath. No nausea or vomiting. He also reports having foul-smelling urine for the past one-week. Course of hospitalization: Cardiology consultation was obtained. Echocardiogram was performed which was essentially unremarkable. Troponins were negative x3. Twelve lead EKG without any ST changes. Patient was noted to have hypertensive crisis. Patient was blood pressure improved with antihypertensives with his chest pain resolving. Patient had a wound to his right lower extremity that he states had superficial I and D at [facility]. Patient was wound has some drainage which was positive for Staph aureus. Patient states that he completed oral antibiotics at home. Currently he receives home health for wound care. Patient was started on vancomycin. Patient will be discharged home with Levaquin 500 mg p.o. daily, providing coverage for noted UTI. Patient was instructed to follow up with his PCP in 1-2 weeks. All questions answered. Physical examination General: Alert and Oriented x3. No acute distress. Well-nourished. Eyes: EOMI. Anicteric. HENT: Moist mucous membranes. Lungs: Clear to auscultation bilaterally. No accessory muscle use. Cardiovascular: Regular rate and rhythm. No murmur. No JVD. Abdomen: Soft, non-tender and non-distended. No palpable masses. Extremities: No edema. Non-tender. Skin: No rashes or lesions. Warm. Neurologic: No focal neurological deficits. CN II-XII grossly intact, but not individually tested. Psychiatric: Cooperative. Appropriate mood and affect. Total time spent with patient discussing and formulating plan of care: 35 minutes. This medical document was created using an electronic medical record system with [employer] dictation system. Although this document has been carefully reviewed, there may still be some phonetic and typographical errors. These areas are purely typographical due to imperfections of the software programs, and do not reflect any compromise in the patient's medical care. Condition at Discharge: Fair Final Diagnosis/Problems List Staph aureas in right wound Chest pain secondary to HTN crisis Diagnosis: -chest pain , ruled out ACS -accelerated hypertension -right lower extremity wound/abscess with Staph aureus -obesity Discharge Disposition: Home with Health Services Discharge Instruct/Medications Diet: Cardiac 2g Na,low cholest Activity: No Restrictions, As Tolerated Follow Up/Referral: PCP in 1-2 weeks Medications: Levaquin 500mg po daily x 7 days Norvasc 10 mg p.o. daily 36 Discharge Statement: "Patient was advised to return to the ER or call 911 if any headaches, dizziness, shortness of breath, chest pain, abdominal pain, bleeding, fevers, or worsening of medical condition. Patient was counseled about treatment plan, medications, possible side effects, patientverbalized understanding. All questions were answered to the best of my ability. This discharge took greater then 30 minutes in planning, reviewing documentation, counseling the patient, and discussing with other team members." ASSESSMENT ASSESSMENT Assessment Maryse osborne in right wound Chest pain secondary to HTN crisis Date of Service: Aug 26, 2024 Billing Provider: SCOTT ALBERTO NP Common Visit Codes: 91147-QLE/OBS DISCH DAY >30min SCOTT ALBERTO NP Aug 26, 2024 16:16
[2024-08-27 09:15] LABS: Hepatitis B Surface Antigen Negative (Negative); Hepatitis C Antibody Negative (Negative)
== END 2024-08-26 17:12 | disposition home health service (06) | DRG 199 ==
LOC: ER 10:14 → OVERFLOW 18:46 → TELE-WESTW 18:49
PROVIDERS: ADMIT Nurse Practitioner Acute Care; ATTEND Nurse Practitioner Acute Care
DX: I16.0 Hypertensive urgency (principal); L02.415 Cutaneous abscess of right lower limb; I10 Essential (primary) hypertension; E66.9 Obesity, unspecified; Z68.33 Body mass index [BMI] 33.0-33.9, adult; N39.0 Urinary tract infection, site not specified; F12.90 Cannabis use, unspecified, uncomplicated; F17.210 Nicotine dependence, cigarettes, uncomplicated; B95.61 Methicillin susceptible Staphylococcus aureus infection as the cause of diseases classified elsewhere; Z83.3 Family history of diabetes mellitus; Z82.3 Family history of stroke
CPT/HCPCS: 36415; 71045; 80048; 80053; 80202; 81001; 82565; 84484; 85025; 85379; 86803; 87077; 87081; 87086; 87186; 87205; 87340; 93005; 93306; 96365; G0378

== ENCOUNTER 2024-10-26 13:32 | Emergency (ER) | payer MEDICAID ==
[~2024-10-26] VITALS: Ht 172.7 cm; Wt 103.0 kg
[~2024-10-26 13:32] MED LIST: ACET1CAP14 PO; AMLO1TAB23 PO; IBUP200C3 PO; LEVO500T91 PO
--- NOTE | 2024-10-26 15:16 | ED.PDOC ---
History of Present Illness HPI Comments 49M presents to the ER w/ prior MHx of HTN, right leg has cellulitis;SHx of Right Leg incision and the c/c of a wound check. Pt reports on having had Sx st [place] x2 months ago which was healing but on Saturday the pt accidentally hit the preceding wound w/ a shovel by accident and currently has redness on thee extremity. Social Hx of Marijuana and tobacco use but denies the rest denies chills fever, N/V/D, SOB, CP. Chief Complaint: Wound Check Time Seen by MD: 14:45 Primary Care Provider: Carmen Quijano Notes: Nurses Notes, Medications, Allergies Allergies: Coded Allergies: NO KNOWN ALLERGIES (Unverified , 08/24/24) Home Meds Active Scripts Amlodipine Besylate (Amlodipine Besylate) 10 Mg Tab, 1 TAB PO DAILY for 30 Days, #30 TAB 5 Refills Prov:SCOTT ALBERTO QUOTER 08/26/24 Levofloxacin Hemihydrate (LEVAQUIN 500 MG) 500 Mg Tab, 1 TAB PO DAILY, #7 TAB Prov:SCOTT ALBERTO QUOTER 08/26/24 Reported Medications Ibuprofen (Ibuprofen) 200 Mg Cap, 200 MG PO, MG 08/24/24 Acetaminophen (Tylenol) 325 Mg Cap, 325 MG PO, CAP 08/24/24 Information Source: Patient Mode of Arrival: Wheelchair Severity: Moderate Timing: Days Duration: Since onset, Days Prehospital treatment: None Past Medical History PAST MEDICAL HISTORY: HTN Past Medical History (Other): right leg has cellulitis Surgical History (Other): right leg incision Family History Family History: Reviewed,noncontributory to illness, Unknown Social History Smoker: Cigarettes Alcohol: Denies ETOH Use Drugs: Marijuana Lives In: Home Constitutional: denies: chills, diaphoresis, fatigue, fever, malaise, sweats, weakness, others EENTM: denies: blurred vision, double vision, ear bleeding, ear discharge, ear drainage, ear pain, ear ringing, eye pain, eye redness, hearing loss, mouth pain, mouth swelling, nasal discharge, nose bleeding, nose congestion, nose pain, photophobia, tearing, throat pain, throat swelling, voice changes, others Respiratory: denies: cough, hemoptysis, orthopnea, SOB at rest, shortness of breath, SOB with excertion, stridor, wheezing, others Cardiovascular: denies: chest pain, dizzy spells, diaphoresis, Dyspnea on exertion, edema, irregular heart beat, left arm pain, lightheadedness, palpitations, PND, syncope, others Gastrointestinal: denies: abdomen distended, abdominal pain, blood streaked bowels, constipated, diarrhea, dysphagia, difficulty swallowing, hematemesis, melena, nausea, poor appetite, poor fluid intake, rectal bleeding, rectal pain, vomiting, others Genitourinary: denies: burning, dysuria, flank pain, frequency, hematuria, incontinence, penile discharge, penile sore, pain, testicle pain, testicle swelling, urgency, others Neurological: denies: dizziness, fainting, headache, left sided numbness, left sided weakness, numbness, paresthesia, pre-existing deficit, right sided numbness, right sided weakness, seizure, speech problems, tingling, tremors, weakness, others Musculoskeletal: denies: back pain, gout, joint pain, joint swelling, muscle pain, muscle stiffness, neck pain, others Integumetry: reports: change in color (redness), wounds; denies: bruises, change in hair/nails, dryness, laceration, lesions, lumps, rash, others Allergic/Immunocompromised: denies: Difficulty Healing, Frequent Infections, Hives, Itching, others Hematologic/Lymphatic: denies: anemia, blood clots, easy bleeding, easy bruising, swollen glands, others Endocrine: denies: excessive hunger, excessive sweating, excessive thirst, excessive urination, flushing, intolerance to cold, intolerance to heat, unexplained weight gain, unexplained weight loss, others Psychiatric: denies: anxiety, bipolar disorder, depression, hopeless, panic disorder, schizophrenia, sleepless, suicidal, others All Other Systems: Reviewed and Negative Physical Exam General Appearance: Moderate Distress, Normal HEENT: Normal ENT Inspection, Pharynx Normal, TMs Normal Neck: Full Range of Motion, Non-Tender, Normal, Normal Inspection Respiratory: Chest Non-Tender, Lungs Clear, No Accessory Muscle Use, No Respiratory Distress, Normal Breath Sounds Cardiovascular: No Edema, No JVD, No Murmur, No Gallop, Normal Peripheral Pulses, Regular Rate/Rhythm Breast Exam: Deferred Gastrointestinal: No Organomegaly, Non Tender, No Pulsatile Mass, Normal Bowel Sounds, Soft Genitalia: Deferred Pelvic: Deferred Rectal: Deferred Extremities: No calf tenderness, Normal capillary refill, Normal inspection, Normal range of motion, Non-tender, No pedal edema Musculoskeletal : Apperance: Normal Neurologic: Alert, analytics manager II-XII nml as Tested, No Motor Deficits, Normal Affect, Normal Mood, No Sensory Deficits Cerebellar Function: NOT DONE Reflexes: NOT DONE Skin: Dry, Normal Color, Warm, Wounds (Right lower extremity) Peripheral Pulses: 3+ Radial (R), 3+ Radial (L) Lymphatic: No Adenopathy Was a procedure done? Was a procedure done?: No Differential Dx Considerations may include: Cellulitis X-Ray, Labs, Meds, VS Vital Signs Date Time Temp Pulse Resp B/P (MAP) Pulse Ox O2 Delivery O2 Flow Rate FiO2 10/26/24 14:00 98.5 90 17 137/93 (108) 96 98.5 Patient alert. Vitals stable. Does have wound in the right lower extremity. Answering questions. Came in for antibiotics pain Tetanus up-to-date. No sign of sepsis. Saturation pristine on room air. Heart rate within normal limits pain Was given prescription of Levaquin antibiotic. Was given clindamycin. Was told to follow up with his primary care physician. Was told to come back if there is any problem. Time of 1ST Reevaluation: 15:15 Reevaluation 1ST: Unchanged Patient Education/Counseling: Diagnosis, Treatment, Prognosis Family Education/Counseling: No Family Present Departure 1 Departure Time of Disposition: 15:39 Impression: Primary Impression: Cellulitis Qualified Codes: L03.115 - Cellulitis of right lower limb Disposition: 01 HOME / SELF CARE / HOMELESS Condition: Good e-Prescriptions Clindamycin Hcl (Clindamycin Hcl) 300 Mg Cap 1 CAP PO TID for 10 Days, #30 CAP Prov: SAIMA WILKS MD 10/26/24 Levofloxacin Hemihydrate (LEVOFLOXACIN) 500 Mg Tab 500 MG PO DAILY for 10 Days, #10 MG Prov: SAIMA WILKS MD 10/26/24 Discharged With: Self Critical Care Note Critical Care Time?: No Stability Stability form required: No Heart Score Heart Score: Heart Score Response (Comments) Value History N/A 0 EKG N/A 0 Age N/A 0 Risk Factors N/A 0 Troponin N/A 0 Total 0 I personally scribed for SAIMA WILKS MD ([email or web address]) on 10/26/24 at 15:16. Electronically submitted by Gen Landry ([email or web address]). SAIMA WILKS MD Oct 26, 2024 15:16
[2024-10-26] MEDS ORDERED: CLIN1CAP70 PO (15:41)
[2024-10-26] MEDS ORDERED: LEVO500T91 PO (15:41)
[2024-10-26 16:16] VITALS: BP 140/96; PULSE 85; RESP 20; TEMP 98.9; O2SAT 97
[2024-10-26] MEDS: cefTRIAXone W LIDOCAINE 1 GM IM IM ONE (16:30)
== END 2024-10-26 16:31 | disposition home or self-care (01) ==
LOC: ER 13:32
DX: L03.115 Cellulitis of right lower limb (principal); I10 Essential (primary) hypertension; F17.210 Nicotine dependence, cigarettes, uncomplicated; Z98.890 Other specified postprocedural states; Z79.899 Other long term (current) drug therapy
CPT/HCPCS: 96372; 99283; J0696